=== PATIENT | male | born 1950 | race Caucasian/White ===

== ENCOUNTER → 2019-05-02 07:37 | Outpatient (CLI) | payer MEDICARE, OTHER, SELFPAY ==
--- NOTE | 2019-05-02 | DI.US.S_ITS ---
PROCEDURE: US ABD AORTA ANEURYSM SCREEN INDICATIONS: SCREEN TECHNIQUE: Real time scanning was performed of the aorta and iliac arteries, with image documentation. COMPARISON: [facility], , CT IVP, 08/05/2003, 10:42. FINDINGS: Aorta: Imaged proximal abdominal aortic diameter measures 2.0 cm anteroposterior. Imaged mid abdominal aortic diameter measures 1.9 cm anteroposterior (and 1.9 cm transverse). Imaged distal abdominal aortic diameter measures 1.9 cm anteroposterior. Iliac arteries: Imaged proximal right common iliac artery measures 1.1 cm anteroposterior. Imaged proximal left common iliac artery measures 1.1 cm anteroposterior. IMPRESSION: No ultrasound evidence of abdominal aortic aneurysm or proximal common iliac artery aneurysm. Dictated by: Igor Pacheco M.D. on 05/02/2019 at 12:53 Approved by: Igor Pacheco M.D. on 05/02/2019 at 13:02
--- NOTE | 2019-05-02 | DI.RAD.S_ITS ---
PROCEDURE: XR CHEST 2V INDICATIONS: Right chest wall pain. TECHNIQUE: 2 views of the chest were acquired. COMPARISON: [facility], , CHEST 2 VIEW, 07/27/2013, 7:30. FINDINGS: Surgical changes and devices: None. Lungs and pleura: Lungs are clear. No pleural effusions or pneumothorax. Mediastinum: Mediastinal contours are normal. Heart size is normal. Bones and chest wall: No suspicious bony abnormalities. Soft tissues appear unremarkable. There are mild multilevel degenerative changes of the thoracic spine. IMPRESSION: No acute cardiopulmonary disease. No radiographic findings to suggest an etiology for the patient's reported right chest wall pain. Consider followup CT of the chest if there is continued clinical concern. Dictated by: Igor Pacheco M.D. on 05/02/2019 at 13:02 Approved by: Igor Pacheco M.D. on 05/02/2019 at 13:07
== END ==
PROVIDERS: Family Provider Family Medicine; PCP Family Medicine; Visit Provider Family Medicine
DX: Z13.6 Encounter for screening for cardiovascular disorders (principal); R07.89 Other chest pain
CPT/HCPCS: 71046; 76706

== ENCOUNTER 2019-09-17 11:54 | Day surgery (SDC) | payer MEDICARE, OTHER, SELFPAY ==
[2019-09-17] VITALS (7 sets, daily range): BP systolic 108–137; BP diastolic 72–89; PULSE 80–98; RESP 14–16; TEMP 36.2–37.1; O2SAT 93–97; BMI 26.6
--- NOTE | 2019-09-17 08:04 | P.HP_ITS ---
History of Present Illness History of Present Illness Date Patient Seen: 09/17/19 Time Patient Seen: 13:11 Chief complaint: [id number] Narrative: 68 year old male comes in today for consideration of a screening colonoscopy. Last colonoscopy on 10/11/2012 significant for a 1-2 mm tubular adenoma at 60 cm and a 1-2 mm hyperplastic polyp at 15 cm. Reports that he has been struggling with diarrhea for the past 6 months, has tried several treatments, nothing seems to help. Otherwise, denies lower GI symptoms suggesting disease such as change in bowel habits, bleeding, abdominal pain or anemia. He does have a family history of colon polyps in his father and brother . Overall health issues have been otherwise stable, including no major cardiac events for at least 6 weeks. PCP: Dr. Bray Past medical history: BPH Increased PSA Erectile dysfunction Low back pain Basal cell carcinoma Squamous cell carcinoma GERD Tobacco dependence Past surgical history: Disc replacement, C6-C7, 2000 Cataract extraction, bilateral, 2019 Colonoscopy, 2012 Family history: Colon polyps, brothers and father Social history: , velez. Meds Home Medications and Allergies Allergies Allergy/AdvReac Type Severity Reaction Status Date / Time bupropion Allergy Verified 09/17/19 08:07 Review of Systems Review of Systems ROS: Yes All systems reviewed with the patient and are negative except as otherwise documented Exam Narrative Exam Narrative: GENERAL: Alert and oriented, appearing stated age and in no acute distress. HEENT: Head normocephalic/atraumatic. LUNGS: Clear to ausculation bilaterally, no wheezes, rhonchi or rales. CV: Normal S1 and S2 with regular rate and rhythm, no audible murmurs, rubs or gallops. ABDOMEN: Soft, non-tender, non-distended, no organomegaly. Positive bowel sounds. EXTREMITIES: No clubbing, cyanosis, or edema. NEURO: Cranial nerves II through XII grossly intact, no focal deficits. PSYCH: Alert and oriented x 3. SKIN: No concerning lesions. Assessment & Plan Assessment & Plan narrative: 1. History of colon polyps 2. Family history of colon polyps 3. Diarrhea 4. Screening for colon cancer Plan for colonoscopy. The nature and character of the procedure as well as anticipated results were discussed. The possibility of not completing the procedure was also discussed. Possible complications including aspiration pneumonia, bleeding, perforation and reaction to medications either for sedation or preparation and missed lesions were discussed. Questions were answered and proceeding to the colonoscopy was elected. Informed consent signed. I sincerely appreciate the referral allowing me to participate in this patient's care. Please contact me with any questions or concerns.
--- NOTE | 2019-09-17 08:04 | PM.OP.ENDO ---
Operative Date/Time/Diagnoses Date of procedure: 09/17/19 Time of procedure: 13:13 Pre-op diagnosis: 1. History of colon polyps 2. Screening for colon cancer Post-op diagnosis: other (1. Ascending polyp x1, 4 mm, removed with cold biopsy forceps, left-sided diverticulosis) Procedure & Clinicians Study performed: Colonoscopy Same procedure as scheduled: Yes Indications: 1. History of colon polyps 2. Family history of colon polyps 3. Diarrhea 4. Screening for colon cancer Surgeon: Thuy Stephens Procedure Notes SCOAP/Timeout: 13:13 Procedure in detail: ENDOSCOPIST: Thuy Stephens MD Sedation RN: Kyleigh Tran RN Sedation start time: 13:13 Sedation end time: 13:36 PROCEDURE: Colonoscopy with biopsy INDICATIONS: 1. History of colon polyps 2. Family history of colon polyps 3. Diarrhea 4. Screening for colon cancer MEDICATION: Levsin 0.125 mg sublingual, incremental doses of Versed and fentanyl until appropriate level sedation achieved. ASA CLASS: 2 CECAL WITHDRAWAL TIME: 12 minutes COMPLICATIONS: None. EXTENT OF PROCEDURE: Cecum. QUALITY OF PREP: Good with portions of liquid stool. PROCEDURE: Prior to insertion of the colonoscope, a digital rectal examination was accomplished with circumferential palpation of the distal rectal mucosa without significant findings being noted. The high-definition colonoscope was passed into the rectum in the usual fashion and advanced over to the cecum without difficulty. The ileocecal valve, appendiceal stoma, and medial wall all could be inspected and no abnormalities were seen. Random biopsies were taken throughout withdrawal. ASCENDING COLON: As the colonoscope was withdrawn, care was taken to expose and inspect the haustral folds and a 4 mm polyp was seen and removed with cold biopsy forceps, excellent hemostasis. HEPATIC FLEXURE: Normal no polyps, diverticula or other abnormalities. TRANSVERSE COLON: Normal no polyps, diverticula or other abnormalities. DESCENDING COLON: Normal no polyps, diverticula or other abnormalities. SIGMOID COLON: Moderate diverticulosis, otherwise normal, no polyps, or other abnormalities. RECTUM: Normal. J maneuver was produced. There was no significant perianal disease. The J maneuver was broken. The remainder of the rectum was inspected and there was no external hemorrhoid disease. The scope was withdrawn. IMPRESSION: 1. Ascending polyp x1, 4 mm, removed with cold biopsy forceps 2. Sigmoid diverticulosis, moderate PLAN: 1. Follow-up in clinic status post pathology results. The possibility of a missed lesion including a malignancy has been discussed with the patient previously. Potential alarm symptoms have been discussed and should be reported immediately. Scope withdrawal time: 12 Sedation minutes: 23 Findings: diverticulosis and polyp Complications: none Impression: As above. Post-procedure Recommendations: Will call with biopsy results Follow up: weeks (2) Disposition: PACU
[2019-09-17] MEDS: HYOSCYAMINE 0.125 MG TABLET PO (12:21)
[2019-09-17] MEDS: SODIUM CHLORIDE 0.9% 1,000 ML 200 ML IV (12:41)
[2019-09-17] MEDS: MIDAZOLAM 5 MG/5 ML VIAL IV (13:38)
[2019-09-17] MEDS: fentaNYL 250 MCG/5 ML INJ IV (13:39)
== END 2019-09-17 14:22 | disposition home or self-care (01) ==
PROVIDERS: Family Provider Family Medicine; PCP Family Medicine; Referring Provider Family Medicine; Visit Provider Student in an Organized Health Care Education/Training Program
PROC: 0DJD8ZZ Inspection of Lower Intestinal Tract, Via Natural or Artificial Opening Endoscopic (ICD-10-PCS; CPT 45378; principal; 2019-09-17 13:00)
DX: K57.30 Diverticulosis of large intestine without perforation or abscess without bleeding (principal); Z86.010 Personal history of colon polyps; D12.2 Benign neoplasm of ascending colon
CPT/HCPCS: 45380; J2250; J3010

== ENCOUNTER 2021-02-20 11:10 | Emergency (ER) | payer MEDICARE, OTHER, SELFPAY ==
[2021-02-20] VITALS (13 sets, daily range): BP systolic 152–167; BP diastolic 81–96; PULSE 63–91; RESP 18–30; TEMP 36.9; O2SAT 91–97; BMI 28.0
--- NOTE | 2021-02-20 11:16 | DI.RAD.S_ITS ---
PROCEDURE: XR CHEST 1V INDICATIONS: chest pain TECHNIQUE: One view of the chest was acquired. COMPARISON: [facility], CR, XR CHEST 2V, 05/02/2019, 8:04. FINDINGS: Surgical changes and devices: None. Lungs and pleura: Lungs are clear. No pleural effusions or pneumothorax. Mediastinum: Mediastinal contours appear normal. Heart size is normal. Bones and chest wall: No suspicious bony lesions. Overlying soft tissues appear unremarkable. IMPRESSION: 1. No acute cardiopulmonary disease. Dictated by: Ramu Jeong M.D. on 02/20/2021 at 11:53 Approved by: Ramu Jeong M.D. on 02/20/2021 at 11:56
[2021-02-20 11:33] LABS: Add Manual Diff / Slide Review NO; Basophils Absolute Auto 100 /uL (0-100); Basophils Percent Auto 1.2 % (0-2); Eosinophils Absolute Auto 100 /uL (0-450); Hematocrit 48.7 % (41-53); Hemoglobin 16.8 g/dL (13.5-17.5); Lymphocytes Absolute Auto 2500 /uL (1100-4500); Lymphocytes Percent Auto 25.6 % (25-40); Mean Corpuscular HGB Conc 34.5 % (30-36); Mean Corpuscular Hemoglobin 31.3 PG (26-34); Mean Corpuscular Volume 90.7 fL (80-100); Monocytes Absolute Auto 700 /uL (0-900); Monocytes Percent Auto 7.6 % (3-14); Neutrophils Absolute Auto 6300 /uL (1500-7000); Neutrophils Percent Auto 64.6 % (50-75); Platelet Count 272 X10^3/uL (150-400); Red Blood Cell Count 5.37 X10^6/uL (4.5-5.9); Red Cell Distribution Width 14.2 % (11.6-14.8); White Blood Cell Count 9.8 X10^3/uL (4.5-11.0)
[2021-02-20 11:46] LABS: Alanine Aminotransferase 29 IU/L (<50); Albumin 4.5 g/dL (3.5-5.0); Albumin Globulin Ratio 1.6 (1.0-2.8); Alkaline Phosphatase 90 U/L (38-126); Aspartate Aminotransferase 31 IU/L (17-59); Bilirubin Total 0.5 mg/dL (0.2-1.3); Blood Urea Nitrogen 13 mg/dL (9-20); Calcium 9.5 mg/dL (8.4-10.2); Carbon Dioxide 26 mmol/L (22-32); Chloride 104 mmol/L (98-107); Creatine Kinase 45 U/L (55-170); Estimated Glomerular Filt Rate > 60.0 mL/min (>60); Globulin 2.9 g/dL (1.7-4.1); Glucose 92 mg/dL (80-110); HEMOLYSIS < 15 (0-50); Lipase 339 U/L (23-300); Potassium 3.9 mmol/L (3.4-5.1); Sodium 137 mmol/L (137-145); Total Protein 7.4 g/dL (6.3-8.2)
[2021-02-20 11:57] LABS: Troponin I < 0.012 ng/mL (0.01-0.034)
--- NOTE | 2021-02-20 12:37 | DI.CT.S_ITS ---
PROCEDURE: CT ABDOMEN PELVIS W CON INDICATIONS: Generalized abdominal pain TECHNIQUE: After the administration of intravenous contrast, axial sections acquired from the lung bases to the pubic symphysis. Coronal and sagittal reformats were performed. For radiation dose reduction, the following was used: automated exposure control, adjustment of mA and/or kV according to patient size. COMPARISON: None. FINDINGS: Lower thorax: The lung bases are clear. Heart size normal. Small hiatal hernia with nonspecific distal esophageal wall thickening, may reflect esophagitis. Liver: The liver is diffusely decreased in attenuation without focal mass lesion. 1 cm hepatic hypodensity probably reflects cysts. Additional smaller hypodensities noted as well. Biliary system: No calcified cholelithiasis or pericholecystic inflammation. No intra or extrahepatic bile duct dilatation. Pancreas: Unremarkable without mass or inflammation evident. Spleen: Normal in size and density. Adrenals: Normal morphology and density. Reproductive system: Hypertrophic prostate measures 5.7 x 6.2 x 5.5 cm with minimal elevation of the bladder floor. Urinary system: Normal renal size and attenuation. There is a 2 mm calculus noted in the right renal pelvis/proximal ureter without evidence of obstruction or hydronephrosis. 1.5 cm left renal simple cyst. Urinary bladder unremarkable. Gastrointestinal system: The bowel appears unremarkable with no evidence of bowel obstruction or inflammation. The stomach appears unremarkable. Multiple diverticula arise from the sigmoid colon without evidence of diverticulitis. Appendix: Normal appendix identified. No evidence of appendicitis. Peritoneal spaces: No mesenteric or retroperitoneal adenopathy. No free air. No free fluid. Vasculature: Aortic atherosclerotic vascular calcification noted without evidence of aneurysm. Musculoskeletal: Normal bone mineralization. No acute fractures. Left inguinal hernia contains fat without bowel involvement. Degenerative disc disease and arthropathy noted at the thoracolumbar junction. IMPRESSION: 1. Small hiatal hernia with nonspecific distal esophageal wall thickening may reflect esophagitis. 2. Nonobstructive 2 mm calculus in the right renal pelvis/proximal ureter. No hydronephrosis. 3. Chronic findings include hypertrophic prostate, sigmoid diverticulosis without diverticulitis, small probable hepatorenal cysts and hepatic fatty infiltration. Approved by: Mars Marin M.D. on 02/20/2021 at 12:11
[2021-02-20] MEDS: MAG HYDROX/ALUMINUM/SIMETH SUS 20 ML, LIDOCAINE VISCOUS 2% 15 ML PO (12:58)
--- NOTE | 2021-02-20 13:12 | ED.CHESTPAIN ---
HPI - Chest Pain <Jorgito Marcum PA-C - Last Filed: 02/20/21 19:29> General Chief Complaint: Chest Pain Stated Complaint: chest pains Time Seen by Provider: 02/20/21 12:13 Source: patient Mode of arrival: Ambulatory Limitations: no limitations History of Present Illness HPI narrative: Robin presents today with his for chief complaint of upper abdominal pain that seems to be getting worse. He reports that he has had occasional symptoms that have waxed and waned over the last few years. However, over the last 2-3 weeks he has had significant worsening symptoms that become more constant. He reports that during that time. He has only had 2 or 3 instances where he has felt normal i.e. pain-free. He denies any significant unexpected weight changes, changes in his bowel or bladder habits, shortness of breath, exertional symptoms, night sweats, postprandial pain. Moving seems to make his symptoms worse. Laying still does not fully get rid of his symptoms put can relieve it. He reports past medical history of acid reflux that is treated with diet. He does not take any regular prescription medications at this time. He denies any previous abdominal surgeries. Related Data Previous Rx's Medication Instructions Recorded omeprazole 20 mg capsule,delayed 20 mg PO DAILY #30 cap 02/20/21 release Allergies Allergy/AdvReac Type Severity Reaction Status Date / Time bupropion Allergy Verified 02/20/21 11:16 Review of Systems <Jorgito Marcum PA-C - Last Filed: 02/20/21 19:29> Review of Systems Narrative: As per HPI Patient History <Jorgito Marcum PA-C - Last Filed: 02/20/21 19:29> Social History household members: spouse Smoking Status: Current every day smoker Smoking Status: Current every day smoker alcohol intake frequency: holidays/special occasions only Substance Use Type: does not use Exam <CHRISSY Carter Last Filed: 02/20/21 19:29> Narrative Exam Narrative: Const General: cooperative, healthy appearing, comfortable and no acute distress Nutritional Appearance: average body habitus and well nourished Orientation: alert and oriented x3 HENMT Head: normal to inspection and normocephalic Eyes periorbital findings normal, eyelids normal, conjunctivae normal Neck: normal visual inspection, full ROM, no lymphadenopathy, no meningeal signs and supple Resp normal respiratory effort, able to speak in complete sentences, not labored and no respiratory distress, clear to auscultation bilaterally, no crackles, no rales and no wheezes Cardio regular rate regular rhythm Heart Sounds: no gallops, no murmurs and no rubs GI Mild epigastric tenderness without any guarding. Negative Felix sign, no rebound tenderness. Normal bowel sounds, no masses noted. Skin No rash or lesions noted. No jaundice or pallor. Extrem normal to inspection, no pedal edema and no calf tenderness Neuro Alert and Oriented x3, normal gait, moves all extremities. Initial Vital Signs Initial Vital Signs: Vital Signs Temperature 98.4 F 02/20/21 11:10 Pulse Rate 87 02/20/21 11:10 Respiratory Rate 18 02/20/21 11:10 Blood Pressure 163/96 H 02/20/21 11:10 Pulse Oximetry 97 02/20/21 11:10 <Cristina Newton DO - Last Filed: 02/25/21 08:33> Initial Vital Signs Initial Vital Signs: Vital Signs Temperature 98.4 F 02/20/21 11:10 Pulse Rate 87 02/20/21 11:10 Respiratory Rate 18 02/20/21 11:10 Blood Pressure 163/96 H 02/20/21 11:10 Pulse Oximetry 97 02/20/21 11:10 Scores <Jorgito Marcum PA-C - Last Filed: 02/20/21 19:29> HEART Score Heart Score history: Slightly Suspicious Heart Score EKG: Normal Heart Score Age: > or = 65 years old Heart Score risk factors: 1-2 risk factors Heart Score troponin: < or = to normal limit Heart Score Total: 3 <Cristina Newton DO - Last Filed: 02/25/21 08:33> HEART Score Heart Score Total: 3 Course <Jorgito Marcum PA-C - Last Filed: 02/20/21 19:29> Orders Ordered: Discontinued Medications Al Hydrox/Mg Hydrox/Simethicone 20 ml/ Lidocaine HCl 15 ml 0 ml PO NOW ONE Stop: 02/20/21 12:40 Last Admin: 02/20/21 12:58 Dose: 35 ml Documented by: CTRPATRICIA Ketorolac Tromethamine (Ketorolac 30 Mg/Ml Vial) 15 mg IV NOW ONE Stop: 02/20/21 14:40 Last Admin: 02/20/21 15:05 Dose: 15 mg Documented by: EDWARD Vital Signs Vital signs: Vital Signs - 8 hr 02/20/21 11:30 02/20/21 11:31 02/20/21 11:56 Pulse Rate 69 70 70 Respiratory Rate 22 18 19 Blood Pressure 156/81 H 166/81 H Pulse Oximetry 97 96 96 02/20/21 12:00 02/20/21 12:12 02/20/21 12:30 Pulse Rate 74 74 87 Respiratory Rate 24 25 H 30 H Blood Pressure 152/84 H 167/85 H 166/95 H Pulse Oximetry 96 96 96 02/20/21 13:00 02/20/21 13:30 02/20/21 14:02 Pulse Rate 72 66 Respiratory Rate 20 Blood Pressure Pulse Oximetry 91 95 95 02/20/21 14:30 02/20/21 15:00 Pulse Rate 63 65 Respiratory Rate 27 H 20 Blood Pressure 166/95 H Pulse Oximetry 95 97 <Cristina Newton, - Last Filed: 02/25/21 08:33> Orders Ordered: Discontinued Medications Al Hydrox/Mg Hydrox/Simethicone 20 ml/ Lidocaine HCl 15 ml 0 ml PO NOW ONE Stop: 02/20/21 12:40 Last Admin: 02/20/21 12:58 Dose: 35 ml Documented by: EDWARD Ketorolac Tromethamine (Ketorolac 30 Mg/Ml Vial) 15 mg IV NOW ONE Stop: 02/20/21 14:40 Last Admin: 02/20/21 15:05 Dose: 15 mg Documented by: EDWARD Vital Signs Vital signs: Vital Signs - 8 hr 02/20/21 11:30 02/20/21 11:31 02/20/21 11:56 Pulse Rate 69 70 70 Respiratory Rate 22 18 19 Blood Pressure 156/81 H 166/81 H Pulse Oximetry 97 96 96 02/20/21 12:00 02/20/21 12:12 02/20/21 12:30 Pulse Rate 74 74 87 Respiratory Rate 24 25 H 30 H Blood Pressure 152/84 H 167/85 H 166/95 H Pulse Oximetry 96 96 96 02/20/21 13:00 02/20/21 13:30 02/20/21 14:02 Pulse Rate 72 66 Respiratory Rate 20 Blood Pressure Pulse Oximetry 91 95 95 08/20/21 14:30 02/20/21 15:00 Pulse Rate 63 65 Respiratory Rate 27 H 20 Blood Pressure 166/95 H Pulse Oximetry 95 97 MDM - Chest Pain <Jorgito Marcum PA-C - Last Filed: 02/20/21 19:29> Lab Data Result diagrams: 02/20/21 11:18 02/20/21 11:18 Labs: Lab Results 02/20/21 02/20/21 Range/Units 11:18 11:18 WBC 9.8 (4.5-11.0) X10^3/uL RBC 5.37 (4.5-5.9) X10^6/uL Hgb 16.8 (13.5-17.5) g/dL Hct 48.7 (41-53) % MCV 90.7 (80-100) fL MCH 31.3 (26-34) PG MCHC 34.5 (30-36) % RDW 14.2 (11.6-14.8) % Plt Count 272 (150-400) X10^3/uL Neut % (Auto) 64.6 (50-75) % Lymph % (Auto) 25.6 (25-40) % Archuleta % (Auto) 7.6 (3-14) % Eos % (Auto) 1.0 L (2-4) % Baso % (Auto) 1.2 (0-2) % Neut # (Auto) 6300 (9867-8489) /uL Lymph # (Auto) 2500 (1226-5617) /uL Archuleta # (Auto) 700 (0-900) /uL Eos # (Auto) 100 (0-450) /uL Baso # (Auto) 100 (0-100) /uL Sodium 137 (137-145) mmol/L Potassium 3.9 (3.4-5.1) mmol/L Chloride 104 (98-107) mmol/L Carbon Dioxide 26 (22-32) mmol/L BUN 13 (9-20) mg/dL Creatinine 1.18 (0.66-1.25) mg/dL Estimated GFR > 60.0 (>60) mL/min BUN/Creatinine Ratio 11.0 (6-22) Glucose 92 (80-110) mg/dL Calcium 9.5 (8.4-10.2) mg/dL Total Bilirubin 0.5 (0.2-1.3) mg/dL AST 31 (17-59) IU/L ALT 29 (<50) IU/L Alkaline Phosphatase 90 (38-126) U/L Total Creatine Kinase 45 L (55-170) U/L CK-MB (CK-2) TNP CK-MB (CK-2) Rel Index TNP Troponin I < 0.012 (0.01-0.034) ng/mL Total Protein 7.4 (6.3-8.2) g/dL Albumin 4.5 (3.5-5.0) g/dL Globulin 2.9 (1.7-4.1) g/dL Albumin/Globulin Ratio 1.6 (1.0-2.8) Lipase 339 H (23-300) U/L MDM Narrative Medical decision making narrative: Differential diagnosis considered includes acute coronary syndrome, acute pancreatitis, acute cholecystitis, esophageal spasm, peptic ulcer disease. Patient's symptoms have been going on for about 1 month. He denies any significant difficulty breathing or exertional symptoms at this time. EKG, troponins are within normal limits. Chest x-ray does not show any significant abnormalities including no subdiaphragmatic air. CT scan was done which shows a small hiatal hernia and esophagitis. He also has a slight elevation in his lipase without any CT evidence of pancreatitis. He also has no reproducible left upper quadrant abdominal tenderness on palpation. He has negative Felix sign and no significant elevation in his liver enzymes or bilirubin. We discussed likely etiology of his symptoms esophagitis and/or related to his hiatal hernia. However, his heart score of 3 and the location of his symptoms should be taken seriously. He is able to follow up with one of his PCPs associates in 2 days on Tuesday. He then has a follow-up appointment with his PCP 1 week after that. I think that outpatient workup is appropriate at this time. Workup, disposition and strict ER return precautions were discussed with the patient, his as well as his son over the phone. Patient verbalizes understanding and agrees to plan and has no further concerns at this time. Thank you A [id number] system was used with the dictation of this note. Please disregard any spelling or grammatical errors. <Cristina Newton, DO - Last Filed: 02/25/21 08:33> Lab Data Labs: Lab Results 02/20/21 02/20/21 Range/Units 11:18 11:18 WBC 9.8 (4.5-11.0) X10^3/uL RBC 5.37 (4.5-5.9) X10^6/uL Hgb 16.8 (13.5-17.5) g/dL Hct 48.7 (41-53) % MCV 90.7 (80-100) fL MCH 31.3 (26-34) PG MCHC 34.5 (30-36) % RDW 14.2 (11.6-14.8) % Plt Count 272 (150-400) X10^3/uL Neut % (Auto) 64.6 (50-75) % Lymph % (Auto) 25.6 (25-40) % Archuleta % (Auto) 7.6 (3-14) % Eos % (Auto) 1.0 L (2-4) % Baso % (Auto) 1.2 (0-2) % Neut # (Auto) 6300 (9967-1905) /uL Lymph # (Auto) 2500 (8108-2168) /uL Archuleta # (Auto) 700 (0-900) /uL Eos # (Auto) 100 (0-450) /uL Baso # (Auto) 100 (0-100) /uL Sodium 137 (137-145) mmol/L Potassium 3.9 (3.4-5.1) mmol/L Chloride 104 (98-107) mmol/L Carbon Dioxide 26 (22-32) mmol/L BUN 13 (9-20) mg/dL Creatinine 1.18 (0.66-1.25) mg/dL Estimated GFR > 60.0 (>60) mL/min BUN/Creatinine Ratio 11.0 (6-22) Glucose 92 (80-110) mg/dL Calcium 9.5 (8.4-10.2) mg/dL Total Bilirubin 0.5 (0.2-1.3) mg/dL AST 31 (17-59) IU/L ALT 29 (<50) IU/L Alkaline Phosphatase 90 (38-126) U/L Total Creatine Kinase 45 L (55-170) U/L CK-MB (CK-2) TNP CK-MB (CK-2) Rel Index TNP Troponin I < 0.012 (0.01-0.034) ng/mL Total Protein 7.4 (6.3-8.2) g/dL Albumin 4.5 (3.5-5.0) g/dL Globulin 2.9 (1.7-4.1) g/dL Albumin/Globulin Ratio 1.6 (1.0-2.8) Lipase 339 H (23-300) U/L Discharge Plan Departure Patient Disposition: Home Clinical Impression: Acute epigastric pain, Esophageal hiatal hernia, Esophagitis Instructions: DI for Acute Coronary Syndrome, DI for Gastroesophageal Reflux Disease (GERD) Activity Restrictions/Additional Instructions: It was very nice to meet you this afternoon. Please use the omeprazole daily to try and help your esophagitis. Recommend following up with your PCP on Tuesday. Given your risk factors and the location of discomfort, I think that it would be of benefit to do an outpatient cardiac evaluation including a treadmill stress test in addition to possibly an echocardiogram. Please discuss this with your PCP and have them order it if they think it is appropriate. If you experience significant worsening chest pain, difficulty breathing, exertional symptoms, fever, or any other acute concerns or complaints do not hesitate to return for re-evaluation. Thank you Jorgito Marcum PAC Prescriptions: New omeprazole 20 mg capsule,delayed release(DR/EC) 20 mg PO DAILY Qty: 30 RF: 0 Referrals: Cain Bray MD [Primary Care Provider] - <Cristina Newton DO - Last Filed: 02/25/21 08:33> Cosign ED Attending Cosjoseature Attestation: I was immediately available in the department for consultation. Documentation has been reviewed.
[2021-02-20] MEDS: KETOROLAC 30 MG/ML VIAL 15 MG IV (15:05)
== END 2021-02-20 15:19 | disposition home or self-care (01) ==
PROVIDERS: Emergency Medicine; Emergency Provider Physician Assistant; Family Provider Family Medicine; PCP Family Medicine
DX: R10.13 Epigastric pain (principal); K44.9 Diaphragmatic hernia without obstruction or gangrene; K20.90 Esophagitis, unspecified without bleeding; R07.9 Chest pain, unspecified
CPT/HCPCS: 36415; 71045; 74177; 80053; 82550; 83690; 84484; 85025; 93005; 93010; 96374; 99284; J1885

== ENCOUNTER 2021-06-01 08:00 | Day surgery (SDC) | payer MEDICARE, OTHER, SELFPAY ==
--- NOTE | 2021-06-01 | PATH_ITS ---
[facility] Accession Number: [id number] . 01 Material submitted: . esophagus - ESOPHAGUS . 02 Diagnosis: Esophagus, Biopsy: Squamocolumnar junctional mucosa with chronic active inflammation. Negative for intestinal metaplasia. Negative for dysplasia and malignancy. V 06/04/2021 1251 Local . 02 Electronically signed: . Jyotsna Farrell MD, Pathologist NPI- [id number] . 01 Gross description: . ESOPHAGUS: Received in formalin are 2 fragment(s) of frost, soft tissue measuring 0.3 x 0.2 x 0.1 cm to 0.3 x 0.2 x 0.1 cm submitted entirely in 1 cassette(s) /QBJ 06/02/2021 0412 Local . 02 Microscopic: . An AB/PAS stain was performed to evaluate for intestinal metaplasia and is negative. The control stain showed appropriate reactivity. . 02 Pathologist provided ICD-10: K21.9 . 02 CPT . 385746, [id number] Performed at: 01 [facility] [address] [facility], [place], [place] [id number] MD Ramu Kimble MD Phone: [phone] Performed at: 02 [facility] [address] [place], [place] [id number] MD Jyotsna Farrell MD Phone: [phone]
[2021-06-01] MEDS: LACTATED RINGERS 1,000 ML 200 ML IV (08:14)
[2021-06-01 08:15] VITALS: BP 160/104; PULSE 89; RESP 16; TEMP 36.3; O2SAT 95; BMI 29.6
[2021-06-01 08:40] LABS: COVID19 -Nasal RAPID Negative (Negative)
--- NOTE | 2021-06-01 08:48 | P.HP_ITS ---
History of Present Illness History of Present Illness Date Patient Seen: 06/01/21 Time Patient Seen: 08:48 Chief complaint: SDC Narrative: 70-year-old man with incidental esophageal thickening identified on CT here for diagnostic esophagoduodenoscopy. Please refer to the H& P from April 2021 for further detail. No interval changes in health. Patient History Family & Social History Family History Father Hypertension Stroke Brother Diabetes mellitus Cancer Mother Cancer Grandfather Cancer Social History: household members spouse Tobacco & Substance use: Smoking Status Never smoker alcohol intake frequency holiday/special occasion Substance Use Type does not use Meds Home Medications and Allergies Home Medications Medication Instructions Recorded Confirmed Type omeprazole 20 mg capsule,delayed 20 mg PO DAILY #30 cap 02/20/21 06/01/21 Rx release Allergies Allergy/AdvReac Type Severity Reaction Status Date / Time bupropion Allergy Verified 06/01/21 08:13 Exam Vital Signs (past 8 hours): - 06/01/21 08:15 Temperature 97.3 F L Pulse Rate 89 Respiratory Rate 16 Blood Pressure 160/104 H Pulse Oximetry 95 Oxygen Delivery Method Room Air Narrative Exam Narrative: Constitutional-he is oriented to person, place and time. No apparent distress Cardiovascular- regular rate, no peripheral edema Pulmonary-unlabored respiratory effort, no audible wheezing Abdominal-soft, non-tender, non-distended Musculoskeletal-no cyanosis or clubbing Neurological-nonfocal, normal strength throughout Objective Labs Labs: Laboratory Results - last 24 hr 06/01/21 08:05 SARS-CoV-2 (PCR) Negative Assessment & Plan Assessment and plan (1) Esophageal thickening: Status: Acute Assessment & Plan narrative: 70-year-old man with incidental esophageal thickening on imaging here for diag nostic esophagoduodenoscopy. Technical details of the procedure were discussed patient. Procedural risks including bleeding, missed diagnosis, perforation were discussed. His questions have been answered and he is in agreement with this plan. Time Spent With Patient Critical Care time: I spent a total of [] minutes of critical care time on this patient's care today; this time is exclusive of procedural time.
[2021-06-01] MEDS: LIDOCAINE 4% SOLN 50 ML 20 ML TOP (08:55)
[2021-06-01] MEDS: MIDAZOLAM 5 MG/5 ML VIAL IV (09:01)
[2021-06-01] MEDS: fentaNYL 250 MCG/5 ML INJ IV (09:04)
--- NOTE | 2021-06-01 09:12 | PM.OP.EGD ---
Operative Date/Time/Diagnoses Date of procedure: 06/01/21 Time of procedure: 09:13 Pre-op diagnosis: Esophageal thickening Post-op diagnosis: other (Hiatal hernia, esophagitis) Procedure & Clinicians Study performed: EGD Same procedure as scheduled: Yes Indications: esophageal thickening on CT Surgeon: Yeison Hauser Procedure Notes Procedure in detail: Patient placed in left lateral decubitus position. Time out was performed. Procedural sedation was administered with Versed and Fentanyl. A bite block was placed. the scope was inserted into the mouth and advanced through the esophagus and into the stomach. The pylorus was intubated and the duodenum was normal to the 2nd portion. The scope was retroflexed within the stomach and there was a hiatal hernia. No ulcers, or gastritis. The scope was withdrawn into the esophagus the Z line was seen at 38 cm from the incisions. There was no Shahid's, however in the mid esophagus there was mild esophagitis and biopsy was performed with forceps. Stomach was desufflated and scope removed. Patient tolerated procedure well. Findings: other findings (esophagitis, hiatal hernia) Specimen(s): other (esophagus) Complications: none Impression: hitatal hernia and esophagitis Post-procedure Plan for aftercare: Repeat EGD 3-4 months as follow up Disposition: same day surgery
[2021-06-01 09:17] VITALS: BP 127/78; PULSE 61; RESP 15; TEMP 36; O2SAT 88
[2021-06-01 09:22] VITALS: BP 118/77; PULSE 66; RESP 20; O2SAT 93
[2021-06-01 09:28] VITALS: BP 126/77; PULSE 64; RESP 13; TEMP 36.6; O2SAT 93
[2021-06-01 09:32] VITALS: BP 123/90; PULSE 60; RESP 22; TEMP 36.6; O2SAT 93
[2021-06-01 09:45] VITALS: BP 129/89; PULSE 59; RESP 20; TEMP 36.6; O2SAT 96
== END 2021-06-01 10:00 | disposition home or self-care (01) ==
PROVIDERS: Family Provider Family Medicine; PCP Family Medicine; Referring Provider Surgery; Visit Provider Surgery
PROC: 0DJ08ZZ Inspection of Upper Intestinal Tract, Via Natural or Artificial Opening Endoscopic (ICD-10-PCS; CPT 43235; principal; 2021-06-01 09:15)
DX: K20.90 Esophagitis, unspecified without bleeding (principal); Z20.822 Contact with and (suspected) exposure to COVID-19; K44.9 Diaphragmatic hernia without obstruction or gangrene
CPT/HCPCS: 43239; 87635; J2250; J3010

== ENCOUNTER → 2021-11-18 09:50 | Outpatient (CLI) | payer MEDICARE, OTHER, SELFPAY ==
--- NOTE | 2021-11-18 | DI.RAD.S_ITS ---
PROCEDURE: XR HIP W PEL IF DONE LT 2V INDICATIONS: Pain in unspecified hip TECHNIQUE: Two views of the hip were acquired. COMPARISON: None. FINDINGS: Bones: No fractures or dislocations. Mild sclerosis at the left sacroiliac joint and left pubic symphysis. No suspicious bony lesions. The visualized pelvic ring appears intact. Soft tissues: No suspicious soft tissue calcifications or masses. IMPRESSION: 1. Normal left hip. 2. 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 Dictated by: Guera Douglas M.D. on 11/18/2021 at 15:12 Approved by: Guera Douglas M.D. on 11/18/2021 at 15:12
== END ==
PROVIDERS: Family Provider Family Medicine; PCP Family Medicine; Referring Provider Family Medicine; Visit Provider Family Medicine
DX: M25.552 Pain in left hip (principal); R10.2 Pelvic and perineal pain
CPT/HCPCS: 73502

== ENCOUNTER 2024-08-14 07:43 | Day surgery (SDC) | payer MEDICARE, OTHER, SELFPAY ==
--- NOTE | 2024-08-14 | PATH_ITS ---
[facility] Accession Number: [id number] No. of containers..01 Tissue . 01 Material submitted: . colon - ASCENDING COLON POLYP . 01 Diagnosis: ASCENDING COLON POLYP: Tubular adenoma. MRV 08/16/2024 1307 Local . 01 Electronically signed: . Brayden Hurd MD, PhD, Pathologist NPI- [id number] . 01 Gross description: . Received in formalin with two patient identifiers and ascending colon polyp, is a single frost soft tissue fragment, 0.9 cm in greatest dimension, submitted in A1. ([id number]) /MRV 08/15/2024 1806 Local . 01 Pathologist provided ICD-10: D12.2 . 01 CPT . 527686 Specimen Comment: A courtesy copy of this report has been sent to [facility] Pathology Performed at: [address] [facility] [address] [address], [place], [place] [id number] MD Ramu Kimble MD Phone: [phone]
[2024-08-14] MEDS: LACTATED RINGERS 1,000 ML 42 ML IV (08:03)
[2024-08-14 08:06] VITALS: BP 162/104; PULSE 113; RESP 16; TEMP 36.7; O2SAT 97
--- NOTE | 2024-08-14 09:02 | PM.HP.IH.1 ---
History of Present Illness History of Present Illness Date Patient Seen: 08/14/24 Time Patient Seen: 09:02 Chief complaint: SDC Narrative: 73-year-old white male multiple past colonoscopies with polyps detected on most of them. No other issues, no changes in bowel habits. [facility] Medical History (Updated 08/14/24 @ 09:03 by Robin Arellano MD) Personal history of colonic polyps Family History Father Hypertension Stroke Brother Diabetes mellitus Cancer Mother Cancer Grandfather Cancer Social History household members: spouse Smoking Status: Never smoker alcohol intake: current Meds Home Medications and Allergies Home Medications Medication Instructions Recorded Confirmed Type omeprazole 20 mg capsule,delayed 20 mg PO DAILY acid reflux #30 caps 02/20/21 08/14/24 Rx release atorvastatin 10 mg tablet 10 mg PO DAILY 08/14/24 08/14/24 History losartan 100 mg tablet 100 mg PO DAILY 08/14/24 08/14/24 History tamsulosin 0.4 mg capsule 0.8 mg PO DAILY 08/14/24 08/14/24 History Allergies Allergy/AdvReac Type Severity Reaction Status Date / Time bupropion Allergy Rash Verified 08/14/24 08:05 Review of Systems Review of Systems ROS: Yes All systems reviewed with the patient and are negative except as otherwise documented Exam Vital Signs (past 8 hours): - 08/14/24 08:06 Temperature 98.0 F Pulse Rate 113 H Respiratory Rate 16 Blood Pressure 162/104 H Pulse Oximetry 97 Oxygen Delivery Method Room Air Oxygen Delivery Method Room Air Narrative Exam Narrative: Gen: NAD, sitting comfortably in bed, appears well HEENT: Sclera are anicteric, head is normocephalic and atraumatic, trachea is midline. CV: RRR, no JVD Resp: clear to auscultation bilaterally, equal chest wall movement bilaterally Abd: soft, nontender, normoactive bowel sounds Ext: no edema, full range of motion Neuro: Cranial nerves II-XII grossly intact, no focal deficits Skin: No erythema or ecchymosis Assessment & Plan Assessment and plan (1) Personal history of colonic polyps: Status: Acute Assessment & Plan narrative: Patient presents for colonoscopy Risks, benefits, alternatives to colonoscopy explained, including but not limited to bowel perforation or other serious complication requiring surgery at less than 1 in 5000 colonoscopies, abdominal pain, cramping or bleeding and less than 1% of colonoscopies, and the chances that we find a diagnosis that would require further intervention of about 2%. Patient agrees to proceed. Time-Based Coding :: [TOTAL MINUTES] spent with patient and on the chart (including review of chart, obtaining history, exam, reviewing outside data, placing orders, documenting exam and treatment plan, and counseling patient) on [DATE]. [employer] Staff Services Manager Document charge(s): No
--- NOTE | 2024-08-14 09:29 | PM.OP.COLON ---
Operative Date/Time/Diagnoses Date of procedure: 08/14/24 Time of procedure: 09:30 Pre-op diagnosis: Personal history of polyps Post-op diagnosis: same (Ascending colon polyp, diverticulosis, internal hemorrhoids) Procedure & Clinicians Study performed: Colonoscopy with cold snare polypectomy of ascending colon polyp Same procedure as scheduled: Yes Indications: Personal history of polyps Surgeon: Robin Arellano Procedure Notes SCOAP/Timeout: Performed Procedure in detail: Time-out was performed. Mac was induced. Patient was placed in left lateral decubitus position. The perineum was inspected without any gross abnormality. Lubricated pediatric colonoscope was inserted and advanced to the cecum. The terminal ileum was intubated. The colonoscope was withdrawn slowly inspecting the circumference of the colon. A small polyp was noted in the ascending colon, removed completely with cold snare polypectomy and retrieved Very small polyps may have been missed, prep quality was adequate. Extensive sigmoid diverticulosis. Retroflexed view of the rectum showed small, non prolapsed nonbleeding internal hemorrhoids. The scope was withdrawn the patient was taken to PACU in good condition. Scope withdrawal time: 7 Sedation minutes: 14 Findings: divertiulosis, internal hemorrhoids and polyp(s) Specimen(s): other (1. Ascending colon polyp) Complications: none Post-procedure Recommendations: Colonoscopy in 10 years (Next colonoscopy in 7 year) Follow up: as needed Disposition: PACU
[2024-08-14 09:31] VITALS: BP 115/76; PULSE 97; RESP 15; TEMP 36.2; O2SAT 93
[2024-08-14 09:36] VITALS: BP 100/69; PULSE 95; RESP 16; O2SAT 95
[2024-08-14 09:41] VITALS: BP 112/83; PULSE 89; RESP 13; O2SAT 94
== END 2024-08-14 09:56 | disposition home or self-care (01) ==
PROVIDERS: Family Provider Family Medicine; PCP Family Medicine; Referring Provider Surgery; Visit Provider Surgery
PROC: 0DJD8ZZ Inspection of Lower Intestinal Tract, Via Natural or Artificial Opening Endoscopic (ICD-10-PCS; CPT 45378; principal; 2024-08-14 08:45)
DX: Z12.11 Encounter for screening for malignant neoplasm of colon (principal); Z86.0100 Personal history of colon polyps, unspecified; K57.30 Diverticulosis of large intestine without perforation or abscess without bleeding; K64.8 Other hemorrhoids; D12.2 Benign neoplasm of ascending colon
CPT/HCPCS: 45385; J2405; J2704